=== PATIENT | male | born 1990 | race African-American/Black ===

== ENCOUNTER 2016-12-07 11:25 | Emergency (ER) | payer OTHER ==
--- NOTE | ~2016-12-07 | US85 ---
[facility] A Service of [facility] RADIOLOGY TEXT RESULTS PATIENT: ANITA LOCKHART E LOCATION: [facility] : [birth year] UNIT #: [id number] AGE: [address]: Mary Jane Huddleston SEX: M ORDER DR: [id number] [facility] [address] [place], [place] [address] [id number] MR#: [id number] Acc #: [id number] NAME: ANITA LOCKHART : 1990 SEX: M STUDY DATE/TIME: 12/07/2016 12:24 UNIT: [facility] ROOM: STUDY DESCRIPTION: [employer] Attending Physician: Mary Jane Huddleston P.A.-C. Ordering Physician: Mary Jane Huddleston P.A.-C. Primary Care Physician: Ford Rodgers Aprn MEDICAL IMAGING REPORT This report is preliminary unless electronic signature is present EXAM Right lower extremity Doppler venous ultrasound DATE 12/07/2016 HISTORY Right leg pain for years, worsening over the past 2 days. No previous history of deep venous thrombosis. Not on blood thinners. COMPARISON None. FINDINGS TECHNIQUE Venous ultrasound examination of the right lower extremity was performed using grayscale, spectral Doppler and color flow Doppler imaging. FINDINGS The examination is negative. There is no evidence of right lower extremity deep venous thrombus from the groin to the lower calf. Visualized greater saphenous vein is also patent. IMPRESSION Negative examination. No evidence of right lower extremity deep venous thrombosis. Dictated by... Liseth Aponte M.D. THIS IS AN ELECTRONICALLY VERIFIED REPORT Liseth Aponte M.D. at 12/08/2016 9:40 AM [facility] A Service of [facility] RADIOLOGY TEXT RESULTS PATIENT: ANITA LOCKHART E LOCATION: [facility] : 88 UNIT #: [id number] AGE: [address]: Mary Jane Huddleston SEX: M ORDER DR: DAMIR/jane TD: 12/07/2016 13:46 JOB #: [id number] MEDICAL IMAGING REPORT Page 1 of 1 COPY
== END 2016-12-07 13:00 | disposition home or self-care (01) ==
LOC: CFTX 11:25 → CED 11:25 → CFTX 11:55
DX: M62.838 Other muscle spasm (principal); F17.210 Nicotine dependence, cigarettes, uncomplicated; Z90.49 Acquired absence of other specified parts of digestive tract
CPT/HCPCS: 93971; 96372; 99284; J1885